=== PATIENT | female | born 1940 | race Caucasian/White ===

== ENCOUNTER 2017-05-02 13:12 | Emergency (ER) | payer MEDICARE ==
[~2017-05-02] VITALS: Wt 52.6 kg
[2017-05-02] MEDS ORDERED: TORSEMIDE10 MG PO (13:23)
[2017-05-02] MEDS ORDERED: LISINOPRIL20 MG PO (13:23)
[2017-05-02] MEDS ORDERED: Glimepiride1 MG PO (13:23)
[2017-05-02] MEDS ORDERED: WARFARIN SODIU2.5 MG PO (13:23)
[2017-05-02] MEDS ORDERED: DICYCLOMINE HCL20 MG PO (13:24)
[2017-05-02] MEDS ORDERED: ATORVASTATIN CA40 M1 PO (13:24)
[2017-05-02] MEDS ORDERED: SERTRALINE HYDR25 MG PO (13:24)
[2017-05-02] MEDS ORDERED: DONEPEZIL HCL5 MG PO (13:24)
[2017-05-02] MEDS ORDERED: CARVEDILOL3.125 MG PO (13:24)
[2017-05-02] MEDS ORDERED: BRILINTA90 M1 PO (13:25)
[2017-05-02] MEDS ORDERED: AMLODIPINE-BEN1 EACH PO (13:25)
[2017-05-02 13:57] LABS: BASO # 0.1 10*3/uL (0.0-0.1); BASO % 1.2 % (0.0-1.0); EOS # 0.1 10*3/uL (0.0-0.4); HEMATOCRIT 31.3 % (37.0-47.0); HEMOGLOBIN 10.2 g/dl (12.0-16.0); LYMPH # 1.8 10*3/uL (1.3-4.4); LYMPH % 25.9 % (27.0-41.0); MEAN CELL VOLUME 87.2 fl (81.0-99.0); MEAN CORPUSCULAR HGB 28.4 pg (27.0-31.0); MEAN CORPUSCULAR HGB CONC 32.6 g/dl (33.0-37.0); MEAN PLATELET VOLUME 9.7 fl (9.6-12.3); MONO # 0.6 10*3/uL (0.1-1.0); MONO % 8.4 % (3.0-9.0); NEUT # 4.2 10*3/uL (2.3-7.9); NEUT % 60.8 % (47.0-73.0); PLATELET COUNT AUTOMATED 278 10*3/uL (130-400); RED BLOOD COUNT 3.59 10*6/uL (4.10-5.10); RED CELL DISTRI WIDTH 14.8 % (0-14.5); WHITE BLOOD COUNT 6.9 10*3/uL (4.8-10.8)
[2017-05-02 14:03] LABS: INTERNATIONAL NORM RATIO 1.8 (2.0-3.5)
[2017-05-02 14:12] LABS: ALBUMIN 3.1 gm/dl (3.1-4.5); ALKALINE PHOSPHATASE 111 U/L (45-117); BUN 54 mg/dl (7-24); CHLORIDE 106 mmol/L (98-107); CREATININE 1.68 mg/dL (0.55-1.02); MAGNESIUM 1.9 mg/dL (1.5-2.1); POTASSIUM 5.1 mmol/L (3.5-5.1); SGOT/AST 20 IU/L (3-35); SGPT/ALT 26 U/L (12-78); SODIUM 136 mmol/L (136-145); TOTAL PROTEIN 7.6 gm/dL (6.4-8.2)
[2017-05-02 14:17] LABS: TROPONIN I < 0.015 ng/ml (<0.045)
== END 2017-05-02 15:42 | disposition left against medical advice (07) ==
LOC: ED 13:12
PROVIDERS: Nurse Practitioner Family
DX: R55 Syncope and collapse (principal); Z79.899 Other long term (current) drug therapy